=== PATIENT | male | born 1960 | race Caucasian/White ===

== ENCOUNTER 2017-10-09 23:52 | Emergency (ER) | payer OTHER ==
[2017-10-10] MEDS ORDERED: Ondansetron ODT 4 MG TAB ONE (00:18)
[2017-10-10 00:41] LABS: Hemoglobin 15.8 g/dL (14.0-18.0); Mean Corpuscular HGB CONC 35.2 g/dL (32.0-36.0); Mean Corpuscular Hemoglobin 32.7 pg (27.0-31.0); Mean Corpuscular Volume 92.9 fL (78.0-98.0); Mean Platelet Volume 8.3 fL (7.4-10.4); Platelet Count 227 thou/uL (130-400); Red Blood Cell (RBC) Count 4.84 mill/uL (4.70-6.10); White Blood Cell (WBC) Count 13.9 thou/uL (4.8-10.8)
[2017-10-10 00:42] LABS: ALT (SGPT) 80 U/L (8-55); AST (SGOT) 67 U/L (5-34); Albumin 3.2 g/dL (3.5-5.0); Alkaline Phosphatase 112 U/L (40-150); Anion Gap 19 mmol/L (10-20); BUN (Urea Nitrogen) 18 mg/dL (8.4-25.7); Bilirubin, Total 3.8 mg/dL (0.2-1.2); Calc. Creatinine Clearance 0 mL/min (70-130); Carbon Dioxide 17 mmol/L (22-29); Chloride 103 mmol/L (98-107); Estimated GFR-MDRD 87; Globulin 2.1 g/dL (2.4-3.5); Glucose 144 mg/dL (70-105); Potassium 3.3 mmol/L (3.5-5.1); Protein, Total 5.3 g/dL (6.0-8.3); Sodium 136 mmol/L (136-145)
[2017-10-10 01:03] LABS: #Basophils 0.1 thou/uL (0.0-0.2); #Lymphocytes 0.5 thou/uL (1.20-3.40); #Monocytes 1.1 thou/uL (0.11-0.59); #Neutrophils 12.2 thou/uL (1.40-6.50); %Basophils 0.6 % (0.0-1.0); %Eosinophils 0.1 % (0.0-10.0); %Lymphocytes 3.3 % (21.0-51.0); %Monocytes 8.2 % (0.0-10.0); %Neutrophils 87.8 % (42.0-75.0); Anisocytosis SLIGHT = 6-15 cells (100X) (0-5/hpf); Elliptocytes SLIGHT = 2-5 cells (100X) (0-1/hpf); MDiff Complete? YES
[2017-10-10 01:25] LABS: Bilirubin Small (Negative); Blood, Urine Small (Negative); Clarity CLEAR (Clear); Glucose, Urine (Dipstick) Negative (Negative); Leukocyte Small (Negative); Nitrite Positive (Negative); Protein, Urine (Dipstick) 30 mg/dL (Neg-Trace); Specific Gravity, Urine 1.018 (1.002-1.036); Urobilinogen 0.2 mg/dL (0.2-1.0)
[2017-10-10 01:27] LABS: Bacteria/HPF None Seen HPF (None Seen); Pathc Cast-AUWi Flag 2.47 (0-2.49); Squamous Epithelial 0-3 HPF (0-3)
[2017-10-10 01:29] LABS: Hyaline Casts/LPF NONE SEEN LPF (0-3 Hyaline); Renal Epithelial None Seen HPF (0-3); Transitional Epithelial NONE SEEN HPF (0-3)
[2017-10-10 02:04] LABS: Troponin I Less than 0.010 ng/mL (< 0.028)
[2017-10-10] MEDS ORDERED: cefTRIAXone\\ROCEPHIN 2 GM VIAL ONE (02:54)
[2017-10-10 04:36] LABS: Lactic Acid 1.7 mmol/L (0.5-2.2)
--- NOTE | 2017-10-10 09:03 | CT ---
PRELIMINARY REPORT/[facility]/EMERGENTY AFTER-HOURS PROCEDURE CT Abdomen and Pelvis With Intravenous Contrast CLINICAL HISTORY: 57 years old, male; Signs and symptoms; Abdominal tenderness; Patient HX: Colon CA, bloody diarrhea. M57 presents to ed for weakness associated with chemo treatment. PT reports being unable to eat for p ast 2 days. PT reports he stood up today and almost fell over, had to rest for a long time and has be en generally weak. PT reports ongoing blood in diarrhea and mild abdominal pain. Hx- PT reports recei ving chemo (1 week iv, 2 weeks oral, 1 week off, then repeat, on 4th round) and had last treatment on the 4th and taking chemo pills currently. PT reports having 2 ft of colon removed in july. Pt[place] onc ologist dr. [facility] TECHNIQUE: Axial computed tomography images of the abdomen and pelvis with intravenous contrast. Coronal reformatted images were created and reviewed. COMPARISON: No relevant prior studies available. FINDINGS: Lower thorax: Moderate pectus excavtus lower thorax. ABDOMEN: Liver: Normal. No mass. Gallbladder and bile ducts: Gallbladder appears contracted, limits evaluation. Mild pericholecystic fluid. Pancreas: Mild fluid- inhomogeneity of the fat surrounding the pancreas head and body. Spleen: Normal. No splenomegaly. Adrenals: Normal. No mass. Kidneys and ureters: Normal. No hydronephrosis. Stomach and bowel: Mild-moderate up to 6-8 mm wall thickening involving small bowel loops in the lowe r pelvis. Appendix: Sutures along the cecum- suspect appendectomy. Retroperitoneal space: Multiple punctate calcifications along the periaortic retroperitoneal fat. PELVIS: Bladder: Unremarkable as visualized. Reproductive: Prostate appears within normal limits. ABDOMEN and PELVIS: Intraperitoneal space: Mild pelvic free fluid. Bones/joints: Chronic degenerative changes of the lumbar spine. Chronic degenerative changes of the l umbar spine. Soft tissues: Unremarkable. Vasculature: Chronic atherosclerotic calcification of the vasculature. Chronic atherosclerotic calcif ication of the vasculature. Lymph nodes: Several scattered subcentimeter mesenteric-right lower quadrant lymph nodes. IMPRESSION: 1. Findings suspicious for pancreatitis. --- Please correlate with patient pancreas enzyme levels to exclude pancreatitis. 2. Mild-moderate small bowel inflammation-enteritis as described above. 3. Mild pelvic free fluid. 4. Several scattered subcentimeter mesenteric-right lower quadrant lymph nodes. -Possible reactive me senteric lymphadenopathy vs. mesenteric lymphadenitis. 5. No evidence of bowel obstruction. Thank you for allowing us to participate in the care of your patient. Dictated and Authenticated by: Grant Rankin MD 10/10/2017 2:55 AM Central Time ([place]) CT ABDOMEN AND PELVIS WITH IV CONTRAST: 10/10/2017 0124 HOURS HISTORY: Abdominal pain. Hematochezia. FINDINGS: Performed on an emergency basis. I agree with the preliminary report by Dr. Mancia from [facility]. Most suggestive of acute pancreatitis. Calcified nonenlarged lymph nodes are apparent within the retroperitoneum. No evidenc e of bowel obstruction. POS: [facility]
--- NOTE | 2017-10-10 09:38 | RAD ---
PORTABLE CHEST: Date: 10/10/17 HISTORY: Patient had chemotherapy today, weakness and nausea. FINDINGS: Heart size is within normal limits. Right heart border is obscured, related to what appears to be a p ectus deformity to the chest seen on previous CT study. Lungs appear clear of any infiltrative proces s. IMPRESSION: No active intrathoracic disease. POS: [facility]
[2017-10-10] MEDS ORDERED: ISOVUE-370 76%-LOCM 1 ML ONE (13:00)
== END 2017-10-10 06:55 | disposition short-term general hospital (02) ==
LOC: ERS 23:52
DX: A41.9 Sepsis, unspecified organism (principal); F32.9 Major depressive disorder, single episode, unspecified; Z79.899 Other long term (current) drug therapy
CPT/HCPCS: 36415; 71045; 74177; 80053; 81003; 81015; 82553; 83605; 83690; 84484; 85025; 87040; 87086; 87804; 93005; 94760; 96361; 96365; J0696; Q0162

== ENCOUNTER → 2017-10-14 | Day surgery (SDC) | payer OTHER, SELFPAY ==
[~2017-10-14] MED LIST: ISOVUE-370 76%-LOCM 1 ML ONE; Potassium Chloride 20 MEQ TAB ONE
[2017-10-14 06:54] LABS: Hemoglobin 12.3 g/dL (14.0-18.0); Mean Corpuscular HGB CONC 34.9 g/dL (32.0-36.0); Mean Corpuscular Hemoglobin 33.8 pg (27.0-31.0); Mean Corpuscular Volume 96.7 fL (78.0-98.0); Platelet Count 158 thou/uL (130-400); RBC Distribution Width 22.7 % (11.5-14.5); Red Blood Cell (RBC) Count 3.63 mill/uL (4.70-6.10)
[2017-10-14 07:08] LABS: Anion Gap 14 mmol/L (10-20); BUN (Urea Nitrogen) 17 mg/dL (8.4-25.7); Calc. Creatinine Clearance 0 mL/min (70-130); Carbon Dioxide 15 mmol/L (22-29); Chloride 111 mmol/L (98-107); Estimated GFR-MDRD Greater than 90; Glucose 93 mg/dL (70-105); Sodium 137 mmol/L (136-145)
[2017-10-14 07:18] LABS: Potassium 2.7 mmol/L (3.5-5.1)
[2017-10-14 07:46] LABS: Anisocytosis MODERATE=16-30 cells (100X) (0-5/hpf); Band 8 % (5-11); Elliptocytes SLIGHT = 2-5 cells (100X) (0-1/hpf); Eosinophils 3 % (0-10); Lymphocytes 34 % (21-51); MDiff Complete? YES; Metamyelocyte 1 % (0-0); Monocytes 19 % (0-10); Neutrophil 35 % (42-75); PLT Morphology Comment Appears Adequate; Polychromasia MODERATE = 3-4 cells (100X) (0-2/hpf)
--- NOTE | 2017-10-14 07:50 | ULT ---
RIGHT LOWER EXTREMITY VENOUS DUPLEX ULTRASOUND INCLUDING COLOR AND SPECTRAL DOPPLER IMAGING: HISTORY: A 57-year-old male with a history of right calf pain. FINDINGS: Exam performed from groin to ankle including visualized greater saphenous, common femoral, superficia l femoral, profunda femoral, popliteal, trifurcation, and posterior tibial veins. There is phasic fl ow at all levels with normal compressibility and normal augmentation. No intraluminal thrombus. IMPRESSION: No evidence for deep venous thrombosis. POS: [facility]
[2017-10-14 09:23] LABS: INR-International Normal Ratio 1.2; PTT 26.4 SEC (22.9-36.1); Prothrombin Time 15.7 SEC (12.0-14.7)
--- NOTE | 2017-10-14 09:31 | CT ---
CT ANGIOGRAM OF THE ABDOMINAL AORTA CT BILATERAL LOWER EXTREMITY RUNOFF: Date: 10/14/17 HISTORY: Right leg pain. Evaluate for thrombus. Aching in mid-calf x6 hours. Pain has progressed with patient now presenting with numbness and tingling. Colon cancer. COMPARISON: 10/10/17. ABDOMEN CT: There is interval development of trace left and a small right-sided pleural effusion with adjacent co nsolidation. Heart size is normal. No pericardial fluid. There is interval development of ascites wit h evidence of perihepatic and perisplenic fluid. This fluid has an attenuation coefficient of 5 Houns field units. There is appropriate arterial phase enhancement of liver, spleen, pancreas, and both adr enal glands. Pericholecystic fluid is nonspecific in the setting of ascites. Symmetric enhancement of the kidneys. Bilaterally, no obstructive uropathy. Intra and extrahepatic portal vein is patent. There is evidence of free fluid in the abdomen. No mass, or free air. There appears to be scattered n odularity involving the mesentery, possibly due to metastasis. There are persistent calcified densiti es in the retroperitoneum compatible with treated lymph nodes. Limited evaluation of the alimentary canal due to lack of oral contrast. There is hyperemia involving segments of small bowel and colon. Correlate for an enteritis/colitis. There is interval development of edema in the soft tissues, suggesting anasarca. PELVIC CT: There is free fluid in the pelvis. No mass, lymphadenopathy, or free air. Urinary bladder is unremark able. No lytic or blastic lesions in the osseous structures. CT ANGIOGRAM: The descending thoracic aorta and abdominal aorta have an overall normal course and caliber. No evide nce of aneurysm or dissection. There is mild tortuosity and a hairpin turn involving the proximal xiomara iac artery. Nevertheless, no evidence of high grade stenosis. The superior mesenteric artery origin, left and right renal artery ostia, and inferior mesenteric artery origin are unremarkable. The aortic bifurcation is unremarkable. The left common iliac artery, internal iliac artery, and external iliac artery are patent. There is a short segment thrombus with near complete occlusion of the right commo n iliac artery. The right internal and external iliac arteries are patent. RIGHT LOWER EXTREMITY: The right common femoral artery, profunda femoral artery, popliteal artery, arterial trifurcation, an d the lower extremity arterial system are patent. There is two vessel supply to the level of the ankl e. LEFT LOWER EXTREMITY: The common femoral artery, profunda femoral artery, superficial femoral artery, popliteal artery, and arterial trifurcation are patent. There is two vessel supply to the level of the ankle. IMPRESSION: 1. 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 2. Hyperemia of the bowel, nonspecific. Correlation for infectious/inflammatory processes. Ischemia is less favored given patency of the superior mesenteric artery. 3. Interval development of bilateral pleural effusions, as well as ascites. Correlate clinically. 4. Stable nodularity in the mesentery suggesting possible lymph node metastases. Results of study discussed with Dr. Hoover on 10/14/17 at 0819 hours. CODE CR. POS: [facility]
--- NOTE | 2017-10-14 10:56 | RAD ---
FRONTAL VIEW CHEST: INDICATIONS: Preoperative assessment. COMPARISON: 10/09/2017 FINDINGS: The lungs reveal no lobar consolidation, effusion, or discrete pneumothorax. The cardiac silhouette is stable. The chest is otherwise similar appearing. IMPRESSION: Stable chest. No lobar consolidation. POS: [facility]
--- NOTE | 2017-10-14 21:17 | CON ---
DATE OF CONSULTATION: 10/14/2017 REQUESTING PHYSICIAN: Colten Hoover DO, in the Emergency Room. CHIEF COMPLAINT: Right leg pain. HISTORY OF PRESENT ILLNESS: The patient is a 57-year-old man with an advance stage colon cancer, who is currently on a drug holiday during his chemotherapy. He awoke about 3:00 this morning with pain in his right calf. It was a constant pain and was worse when he tried to walk. He apparently contac [facility] the [facility] at the [facility], where he is being treated and that they recommended that he g o to the local emergency room, the patient says that his foot feels cold for the most part, his calf no longer hurts. He denies any palpitations or any antecedent buttock, thigh or calf pain with ambul ation. PAST MEDICAL HISTORY: Primarily notable for his colon cancer. CURRENT MEDICATIONS: Iron, potassium, Zofran, fluoxetine, capecitabine. ALLERGIES: The patient denies any medical allergies. SOCIAL HISTORY: He does not smoke tobacco, but does smoke marijuana. Denies alcohol use. REVIEW OF SYSTEMS: Negative for any chest pain, any palpitations, any claudication. Positive for so me purplish discoloration that has developed in the tips of all of his toes while on chemotherapy. PHYSICAL EXAMINATION: GENERAL: A thin man in no distress. VITAL SIGNS: Heart rate is 79, blood pressure 110/70, temperature is 97.8, room air O2 sats are 99 %. NECK: He has no JVD. LUNGS: Chest is clear to auscultation. He has pectus excavatum deformity. CARDIOVASCULAR: He has a regular rate and rhythm. ABDOMEN: Soft and nontender. EXTREMITIES: He has easily palpable femoral, posterior tibial pulses bilaterally, although right fem oral pulse, perhaps is a little bit diminished compared to the left. The right femoral is associated with a bruit, the left is not. The left dorsalis pedis pulse is palpable, though perhaps somewhat d iminished. I was not able to palpate or Doppler right dorsalis pedis pulse. The feet and legs are w arm symmetrically and has brisk capillary refill. The compartments are soft and nontender. The ankl es are freely mobile with no pain on dorsiflexion. The patient had a venous Doppler of the right leg that showed no evidence of DVT. He had a CTA with runoff that showed plaque associated with a short segment occlusion of his right common iliac artery with reconstitution of the common iliac distally. LABORATORY EXAM: Showed white count of 4.0, hemoglobin 12.3, platelets 158,000. Chemistries were mo st notable for potassium of 2.7. His BUN and creatinine were normal. On the , he had liver funct ion studies that showed a bilirubin of 3.8, alkaline phosphatase 112, AST 67, ALT of 80 and albumin a t 3.2. His chest x-ray suggests some displacement of the heart by his pectus excavatum deformity. IMPRESSION AND RECOMMENDATIONS: The patient's symptoms seemed to have largely resolved. I am not hyman re how to explain them, I certainly do not think that this represents acute ischemia of his leg. The radiographic abnormality, probably represents a chronic disease as he is obviously well compensated with palpable pulses in spite of a short segment occlusion. I would be happy to follow him for his v ascular disease, but the patient has [employer] benefits that he wants to use and so far has been quite satis fied with the care that he has received at the [facility].
== END ==
LOC: ERS 05:18 → SDC 10:00
PROVIDERS: ATTEND Thoracic Surgery (Cardiothoracic Vascular Surgery)
DX: M79.604 Pain in right leg (principal); Z79.899 Other long term (current) drug therapy
CPT/HCPCS: 36415; 71045; 75635; 80048; 85025; 85610; 85730